=== PATIENT | male | born 1980 | race American Indian/Alaskan Native ===

== ENCOUNTER 2017-03-11 19:05 | Emergency (ER) | payer BC ==
[2017-03-11 19:16] VITALS: BP 144/91; PULSE 90; RESP 18; TEMP 98.8; O2SAT 99
--- NOTE | 2017-03-11 20:31 | ED PDOC ---
HPI: Abdomen Time Seen by Provider: 03/11/17 19:37 Chief Complaint (Nursing): Abdominal Pain Chief Complaint (Provider): Abdominal Pain History Per: Patient History/Exam Limitations: no limitations Onset/Duration Of Symptoms: Intermittent Episodes (2 weeks ) Current Symptoms Are (Timing): Still Present Severity: Moderate Location Of Pain/Discomfort: RUQ, Epigastric Quality Of Discomfort: "Pain" Associated Symptoms: Nausea, Diarrhea. denies: Fever, Vomiting Additional Complaint(s): Willy Nash is a 36 y/o male presenting to the ER on 03/11/2017 with complaints of intermittent abdominal pain for two weeks. Patient reports pain, which is not constant, is localized to the epigastric and RUQ regions. He states pain occurs every times he eats food, but eventually resolves on its own. Patient notes his abdominal pain is associated with nausea and intermittent diarrhea last week described as "watery". However, he denies any episodes of fever, cough, vomiting, or other symptoms. Patient did not experience any diarrhea today and was evaluated at the [facility] prior to arrival. He lives in [place], where his primary doctor resides. Of note, patient has a past medical history of HIV and Diabetes Mellitus. He has been taking his medications for both diseases but has not been compliant everyday. Patient does not recall his last CD4 count, but states his last viral load was undetectable when he had a check-up seven months ago. Patient is also taking eicosanoids since he tested positive during his PPD test. Past Medical History Reviewed: Historical Data, Nursing Documentation, Vital Signs Vital Signs: Last Vital Signs Temp 98.8 F 03/11/17 19:15 Pulse 90 03/11/17 19:15 Resp 18 03/11/17 19:15 BP 144/91 H 03/11/17 19:15 Pulse Ox 99 03/11/17 21:55 - Medical History PMH: Diabetes, HIV - Surgical History Surgical History: Tonsillectomy - Family History Family History: States: Unknown Family Hx - Social History Alcohol: None - Home Medications Home Medications: Ambulatory Orders Medication Instructions Recorded Famotidine [Pepcid] 20 mg PO DAILY #14 tab 03/11/17 Omeprazole 20 mg PO DAILY #30 capsule. 03/11/17 - Allergies Allergies/Adverse Reactions: Allergies Allergy/AdvReac Type Severity Reaction Status Date / Time No Known Allergies Allergy Verified 03/11/17 19:13 Review of Systems ROS Statement: Except As Marked, All Systems Reviewed And Found Negative Constitutional: Negative for: Fever Respiratory: Negative for: Cough Gastrointestinal: Positive for: Nausea, Abdominal Pain, Diarrhea. Negative for : Vomiting Physical Exam - Reviewed Nursing Documentation Reviewed: Yes Vital Signs Reviewed: Yes - Physical Exam Appears: Positive for: Non-toxic, No Acute Distress Head Exam: Positive for: ATRAUMATIC, NORMOCEPHALIC Skin: Positive for: Normal Color. Negative for: Rash Eye Exam: Positive for: Normal appearance, EOMI, PERRL ENT: Positive for: Normal ENT Inspection Neck: Positive for: Normal, Painless ROM, Supple Cardiovascular/Chest: Positive for: Regular Rate, Rhythm. Negative for: Murmur Respiratory: Positive for: Normal Breath Sounds. Negative for: Wheezing, Respiratory Distress Gastrointestinal/Abdominal: Positive for: Normal Exam ((-) horn's sign ), Tenderness ((+) mild RUQ and epigastric tenderness ) Extremity: Positive for: Normal ROM. Negative for: Deformity, Swelling Neurologic/Psych: Positive for: Alert, Oriented. Negative for: Motor/Sensory Deficits - Laboratory Results Result Diagrams: 03/11/17 20:23 03/11/17 20:23 - ECG O2 Sat by Pulse Oximetry: 99 - Progress Re-evaluation Time: 21:50 Condition: Re-examined, Improved Medical Decision Making Medical Decision Makin:37 Initial Impression- Abdominal Pain, resolved at this time. Differential diagnosis includes but is not limited to: Gastritis, PUD, gallbladder disease, and pancreatitis. Initial Plan- * CMP * Lipase * CBC w/ differential * US Gallbladder 21:54 US FINDINGS: Liver: Mildly heterogeneous, nonspecific. No discrete mass. No intrahepatic ductal dilatation. Gallbladder: No gallstones. No wall thickening. No pericholecystic fluid. No sonographic Horn's sign. Common bile duct: No dilatation. No stones. Pancreas: Unremarkable as visualized. Right kidney: Normal echogenicity. No hydronephrosis. IMPRESSION: 1. No acute findings. 2. Non-acute findings are described above. Documented by Jerel Asencio, acting as a scribe for Sunshine Sears MD. All medical record entries made by the Scribe were at my direction and personally dictated by me. I have reviewed the chart and agree that the record accurately reflects my personal performance of the history, physical exam, medical decision making, and the department course for this patient. I have also personally directed, reviewed, and agree with the discharge instructions and disposition. Disposition - Clinical Impression Clinical Impression: Abdominal pain - Patient ED Disposition Is Patient to be Admitted: No Doctor Will See Patient In The: Office Counseled Patient/Family Regarding: Studies Performed, Diagnosis, Need For Followup - Disposition Referrals: Deidra JORGENSEN,MD [place] [Medical Doctor] - Disposition: Routine/Home Disposition Time: 21:55 Condition: GOOD Additional Instructions: Return for worsening. Follow up with your PCP in 2-3 days. Take medications as instructed. Prescriptions: Famotidine [Pepcid] 20 mg PO DAILY #14 tab Omeprazole 20 mg PO DAILY #30 capsule. Instructions: Gastritis (ED)
[2017-03-11 20:49] LABS: ALB/GLOB RATIO 1.2 (1.0-2.1); ALBUMIN 4.2 g/dL (3.5-5.0); ALT/SGPT 47 U/L (21-72); AST/SGOT 23 U/L (17-59); BASO % 0.3 % (0.0-2.0); BLOOD UREA NITROGEN 11 mg/dl (9-20); CALCIUM 8.8 mg/dL (8.4-10.2); EOS # 0.1 K/uL (0.0-0.7); EOS % 1.4 % (0.0-4.0); GFR AFRICAN-AMERICAN > 60; GFR NON-AFRICAN AMERICAN > 60; HEMOGLOBIN 11.8 g/dL (12.0-18.0); LIPASE 85 U/L (23-300); LYMPH # 3.4 K/uL (1.0-4.3); LYMPH % 44.2 % (20.0-40.0); MEAN CELL VOLUME 88.6 fl (80.0-94.0); MEAN CORPUSCULAR HEMOGLOBIN 29.2 pg (27.0-31.0); MEAN PLATELET VOLUME 8.7 fl (7.2-11.7); MONO # 0.7 K/uL (0.0-0.8); MONO % 8.7 % (0.0-10.0); NEUT # 3.5 K/uL (1.8-7.0); NEUT % 45.4 % (50.0-75.0); NRBC % 0.1 % (0.0-0.0); RBC 4.03 Mil/uL (4.40-5.90); WHITE BLOOD COUNT 7.8 K/uL (4.8-10.8)
--- NOTE | 2017-03-12 07:47 | US ---
HISTORY: Right upper quadrant pain COMPARISON: None. TECHNIQUE: Sonographic evaluation of the right upper quadrant of the abdomen. FINDINGS: LIVER: Measures 17.8 cm in length. Patent portal vein. Portal venous flow: Hepatopetal. Unremarkeable echogenicity of the liver parenchyma. No mass. No intrahepatic bile duct dilatation. GALLBLADDER: Unremarkable. No gallstones. COMMON BILE DUCT: Measures 3.7 mm. No stones. No dilatation. PANCREAS: Unremarkable as visualized. No mass. No ductal dilatation. RIGHT KIDNEY: Measures 5.6 x 10.8 cm in length. Normal echogenicity. No calculus, mass, or hydronephrosis. AORTA: No aneurysmal dilatation. IVC: Unremarkable. OTHER FINDINGS: None . IMPRESSION: No significant or acute findings to account for/ related to the clinical presentation. Concordant results (preliminary interpretation) provided by [facility]. Procedure Completed: 20:51 Preliminary ([facility]) Report: Dictated and Authenticated: 21:34 Final Interpretation: 07:44. March 12, 2017.
== END 2017-03-11 22:17 | disposition home or self-care (01) ==
LOC: H.ER 19:05
DX: K29.70 Gastritis, unspecified, without bleeding (principal); E11.9 Type 2 diabetes mellitus without complications